=== PATIENT | male | born 2005 | race African-American/Black ===

== ENCOUNTER → 2024-08-02 06:56 | Outpatient (CLI) | payer OTHER, SELFPAY ==
--- NOTE | 2024-08-02 06:59 | DI.US.S_ITS ---
PROCEDURE: US SCROTUM INDICATIONS: TESTICULAR MASS TECHNIQUE: Real-time scanning was performed of the scrotum and testicles, with image documentation. Color and pulse Doppler interrogation was performed of both testicles. COMPARISON: None. FINDINGS: Right: Testicle is normal in size at 5.2 x 2.7 x 1.9 cm, and homogenous in echotexture. Epididymis is normal in overall size and morphology a small epididymal cyst is incidentally noted at the epididymal head area. This measures only 2 mm. No hydrocele or varicoceles. Overlying scrotal skin is normal in thickness. Left: Testicle is normal in size at 2.5 x 1.9 x 4.7 cm, and homogeneous in echotexture. Epididymis is mildly enlarged at the epididymal body and tail representing the area of patient's current clinical concern. A discrete sonographically identifiable soft tissue mass involving the epididymis or testicular parenchyma is not seen. No hydrocele but there are left-sided varicoceles which increase in caliber with Valsalva maneuver. Overlying scrotal skin is normal in thickness. Doppler: Color and pulse Doppler demonstrate normal and symmetric arterial flow in both testicles. IMPRESSION: A discrete soft tissue mass is not found. The left epididymis is asymmetrically enlarged when compared to normal appearance on the right through the body and tail of the epididymis. Hyperemia identifiable by vascular assessment with ultrasound was not identified. However, mild epididymitis remains a potential cause for this finding. Dictated by: Dony Vasquez M.D. on 08/02/2024 at 16:26 Approved by: Dony Vasquez M.D. on 08/02/2024 at 16:30
== END ==
LOC: US 06:58
PROVIDERS: PCP Pediatrics; Referring Provider Physician Assistant; Visit Provider Physician Assistant
DX: N45.1 Epididymitis (principal); N50.89 Other specified disorders of the male genital organs
CPT/HCPCS: 76870

== ENCOUNTER 2024-12-13 13:00 | Emergency (ER) | payer OTHER, SELFPAY ==
[2024-12-13 13:34] VITALS: BP 137/89; PULSE 63; RESP 16; TEMP 36.1; O2SAT 100; BMI 22.5
--- NOTE | 2024-12-13 16:47 | ED_ITS ---
HPI - Recheck/Abnormal Lab/Rx <Gin Mcgovern PA-C - Last Filed: 12/13/24 18:33> General Chief Complaint: Recheck/Abnormal Lab/Rx Stated Complaint: cant eat or sleep getting worse Time Seen by Provider: 12/13/24 15:35 History of Present Illness HPI narrative: John Johnson is a very pleasant 19-year-old male with a past medical history of insomnia for the last 2 years who presents to the emergency department for concerns of insomnia and not eating for 3 days. Patient states over the last 2 years he has struggled significantly with insomnia, he lays in bed at night being unable to fall asleep, he eventually will fall asleep in the morning usually around 7:00 a.m. but will only sleep for very few hours before getting up and starting his day. However the last 3 days he has not been able to sleep at all. Patient is not in school and does not work however he spends majority of his day taking care of his 3 younger siblings. He also lives with his mom. Patient states that he is busy during the day and becomes very tired and wants to sleep but he just can not fall asleep. States that he has not eaten in the last 3 days because he simply does not have an appetite, he is not having pain nausea or vomiting, he has been able to keep down some fluids and a few bites of food but he just does not want to keep eating. Patient states his mom was concerned that he may be depressed but he denies feeling sad or anxious or having any history of mental health disease. Denies feeling manic or like he does not need sleep. Denies chest pain, shortness of breath, fevers, chills, flu-like symptoms, dysuria, hematuria, constipation, diarrhea. Patient smokes marijuana about once a month which does help with sleep however he does not do this regularly. No other drug use. No alcohol. No surgeries. Reports 1 year ago he did see a doctor and believes they prescribed medication that made him drowsy but he still could not fall asleep, he has also tried melatonin without significant results. He denies any life changes 3 days ago. Denies SI, HI, visual or auditory hallucinations. No PCP currently. Related Data Previous Rx's ?Medication ?Instructions ?Recorded hydroxyzine HCl 25 mg tablet 25 mg PO BEDTIME PRN inso mnia #30 12/13/24 tabs Allergies Allergy/AdvReac Type Severity Reaction Status Date / Time No Known Drug Allergies Allergy Verified 12/13/24 13:36 Review of Systems <Gin Mcgovern PA-C - Last Filed: 12/13/24 18:33> Review of Systems ROS Unobtainable: All systems reviewed & are unremarkable except as noted in HPI and below Exam <Gin Mcgovern PA-C - Last Filed: 12/13/24 18:33> Narrative Exam Narrative: GENERAL: 19 year old athletic appearing patient appears stated age. Well- developed patient, in no acute distress. HEAD: Atraumatic. Normocephalic. EYES: PERRL. Extraocular motions intact. No scleral icterus. No injection or drainage. ENT: Nose without bleeding, purulent drainage. NECK: Trachea midline. Cervical ROM intact. CARDIOVASCULAR: Regular rate and rhythm. RESPIRATORY: ?Nonlabored respirations. ?Speaking in clear, full sentences. ?Clear to auscultation. Breath sounds equal bilaterally. No wheezes, rales, or rhonchi. ? GASTROINTESTINAL: Abdomen soft, non-tender, nondistended. EXTREMITIES: No LE edema. NEURO: AOx3. ?Clear speech. ?Moves all 4 extremities appropriately. SKIN: No rash or erythema of visible areas Initial Vital Signs Initial Vital Signs: Vital Signs Temperature 96.9 F L 12/13/24 13:34 Pulse Rate 63 12/13/24 13:34 Respiratory Rate 16 12/13/24 13:34 Blood Pressure 137/89 12/13/24 13:34 Pulse Oximetry 100 12/13/24 13:34 Oxygen Delivery Method Room Air 12/13/24 13:34 <Renita Yee MD - Last Filed: 12/13/24 23:30> Initial Vital Signs Initial Vital Signs: Vital Signs Temperature 96.9 F L 12/13/24 13:34 Pulse Rate 63 12/13/24 13:34 Respiratory Rate 16 12/13/24 13:34 Blood Pressure 137/89 12/13/24 13:34 Pulse Oximetry 100 12/13/24 13:34 Oxygen Delivery Method Room Air 12/13/24 13:34 Course <Gin Mcgovern PA-C - Last Filed: 12/13/24 18:33> Orders Ordered: ED Orders 12/13/24 17:04 Consult to [facility] Mechanical Sound Technician Stat Discontinued Medications Hydroxyzine HCl (Hydroxyzine Hcl 25 Mg Tablet) 50 mg PO NOW ONE Stop: 12/13/24 17:07 Last Admin: 12/13/24 17:20 Dose: 50 mg Documented By: SB Vital Signs Vital signs: Vital Signs - 8 hr 12/13/24 17:49 Temperature 98.0 F Pulse Rate 60 Respiratory Rate 16 Blood Pressure 134/71 Pulse Oximetry 100 Oxygen Delivery Method Room Air <Renita Yee MD - Last Filed: 12/13/24 23:30> Orders Ordered: ED Orders 12/13/24 17:04 Consult to [facility] Mechanical Sound Technician Stat Discontinued Medications Hydroxyzine HCl (Hydroxyzine Hcl 25 Mg Tablet) 50 mg PO NOW ONE Stop: 12/13/24 17:07 Last Admin: 12/13/24 17:20 Dose: 50 mg Documented By: SB Vital Signs Vital signs: Vital Signs - 8 hr 12/13/24 17:49 Temperature 98.0 F Pulse Rate 60 Respiratory Rate 16 Blood Pressure 134/71 Pulse Oximetry 100 Oxygen Delivery Method Room Air MDM - Recheck/Abnormal Lab/Rx <Gin Mcgovern PA-C - Last Filed: 12/13/24 18:33> Medical Records Attestation: I reviewed the patient's medical records. [facility] Narrative Medical decision making narrative: 19-year-old male with a past medical history of insomnia for the last 2 years who presents to the emergency department for concerns of insomnia and not eating for 3 days. Differential diagnosis includes is not limited to insomnia, depression, bipolar disorder, delayed gastric emptying, etc. On exam patient is in no acute distress, nontoxic-appearing, all vital signs within normal limits. Head-to-toe exam reveals no abnormalities, abdomen is soft and nontender, lungs clear to auscultation, no edema, bowel sounds present. Patient is not experiencing any acute psychosis, juliane, SI, HI, sadness or anxiety. He is able to eat but does not have the desire to do so. Patient is interested in trying hydroxyzine to help with sleep and is also open to consult with social work for help with PCP and mental health follow up as we discussed that symptoms could be related to an underlying mental health disorder. We extensively discussed sleep hygiene as well. Patient given 1st dose of hydroxyzine in the ED, his grandfather is here to drive him home. They are happy with this plan. Patient is tolerating p.o.. Patient understands COMMUNICATIONS ENGINEER was not here currently but we will follow up with him, discussed that CBT is the first-line treatment for insomnia and he is willing to try this. Discussed strict ER return precautions. Patient verbalized understanding of all information agreeable to the plan. He is stable for discharge home. Discharge Plan Departure Patient Disposition: Home Clinical Impression: Decrease in appetite Insomnia Qualifiers: Insomnia type: unspecified Qualified Code(s): G47.00 - Insomnia, unspecified Instructions: DI for Insomnia Activity Restrictions/Additional Instructions: Dear Mr. Johnson, Thank you for coming to the emergency department. Today you were evaluated for difficulty sleeping and eating. As we discussed, your insomnia could be related to an underlying mental health disorder, so it is very important to follow up with the primary care doctor and or a mental health professional as they can help with long-term medications. I would like you to focus on hydration and making sure that you were getting electrolytes in your diet. You have been prescribed a medication that can help with anxiety and falling asleep, please take 1-2 tablets at night to help fall asleep. Cognitive behavioral therapy is the first-line treatment for insomnia, this is why it is extremely important to follow up with the primary care doctor or mental health provider. I have placed a referral to our criminal justice social worker who will reach out and contact you to help with this. Please return to ER immediately if you develop fevers, pain, vomiting, thoughts of self-harm or any other concerns about your physical or mental health. Please follow up with your primary care doctor within the next 2-3 days for ER follow-up. (If you do not have a PCP you can call [phone]. ?to schedule an appointment with an [facility] Primary Care Provider) IF YOU DEVELOP ANY NEW OR WORSENING SYMPTOMS, RETURN TO THE ER! Please read the attached instructions, they highlight more specific treatments and interventions for you at home. Thank you for letting me participate in your care, Gin Mcgovern PA-C Prescriptions: New hydroxyzine HCl 25 mg tablet 25 mg PO BEDTIME PRN (Reason: insomnia) Qty: 30 0RF Rx Instructions: Take 1 to 2 tabs at bedtime as needed for trouble falling asleep. Referrals: Rhett Ernandez MD [Primary Care Provider, Medical] Stand Alone Forms: Patient Portal/API ED Sign-out <Renita Yee MD - Last Filed: 12/13/24 23:30> Cosign ED Attending Cosignature Attestation: I was immediately available in the department for consultation throughout this patient's visit. Renita Yee MD
[2024-12-13 17:49] VITALS: BP 134/71; PULSE 60; RESP 16; TEMP 36.7; O2SAT 100
--- NOTE | 2024-12-14 11:44 | CM.SWNOTE ---
ED AUTOMATIC CHIEF Follow Up Note AUTOMATIC CHIEF receives consult to follow up with patient regarding outpatient mental health services and follow up with PCP. Patient presented to the ED yesterday due to concern for lack of sleep, and limited desire to eat. AUTOMATIC CHIEF attempts to call patient but patient's phone is not in service. AUTOMATIC CHIEF emails patient to request return email or phone call for further resources. HAMIDA Osborne
== END 2024-12-13 17:49 | disposition home or self-care (01) ==
PROVIDERS: Emergency Provider Physician Assistant; PCP Pediatrics
DX: G47.00 Insomnia, unspecified (principal); R63.0 Anorexia
CPT/HCPCS: 99283; A9270